=== PATIENT | female | born 1990 | race Two or more races ===

== ENCOUNTER 2017-09-21 19:32 | Emergency (ER) | payer MEDICAID ==
[~2017-09-21] VITALS: Ht 147.3 cm; Wt 44.5 kg
[2017-09-21] MEDS ORDERED: NKM (19:46)
[2017-09-21] MEDS ORDERED: BACITRACIN-P28.35 GM TP (20:12)
[2017-09-21] MEDS ORDERED: TYLENOL EXTRA500 MG ORAL (20:12)
--- NOTE | 2017-09-21 20:13 | Emergency Room Report ---
History of Present Illness General Chief Complaint: Laceration Source: Patient Present Illness HPI 27 yo female patient presents to ER for skin laceration since today. Patient reports cleaning dishes at home when she sliced her pinky finger of her right hand on a knife. Reports bleeding at site of injury. Denies loss of ROM of hand. Reports shes is right handed. Does not know tetanus status. Denies fever, chest pain, SOB. Allergies: Coded Allergies: No Known Allergies (Unverified , 09/21/17) Patient History Past Medical History: see triage record Last Menstrual Period: 08/27/17 Now: No Reviewed Nursing Documentation: PMH: Agreed, PSxH: Agreed Nursing Documentation-PMH Past Medical History: No Stated History Review of Systems All Other Systems: negative except mentioned in HPI Physical Exam Vital Signs Date Time Temp Pulse Resp B/P (MAP) Pulse Ox O2 Delivery O2 Flow Rate FiO2 09/21/17 19:43 98.3 67 16 122/79 98 Room Air 98.2 Sp02 EP Interpretation: reviewed, normal General Appearance: well appearing, no apparent distress, alert, GCS 15 Head: normocephalic, atraumatic Eyes: bilateral eye normal inspection, bilateral eye PERRL ENT: hearing grossly normal, normal pharynx, no angioedema, normal voice, uvula midline, moist mucus membranes Respiratory: lungs clear, normal breath sounds, no rhonchi, no respiratory distress, no accessory muscle use, no wheezing, speaking full sentences Cardiovascular #1: regular rate, rhythm, no edema Cardiovascular #2: 2+ radial (R), 2+ radial (L) Musculoskeletal: back normal, digits/nails normal, gait/station normal, normal range of motion, non-tender, other - NVI Neurologic: alert, oriented x3, responsive, motor strength/tone normal, sensory intact Psychiatric: mood/affect normal Skin: no rash, laceration - right hand, pinky digit, ulnar side near palmar DIP joint: 1cm laceration, linear, superifical, bleeding, no tissue avulsion Medical Decision Making PA Attestation Dr. Rebolledo is my supervising Physician whom patient management has been discussed with. Diagnostic Impression: Primary Impression: Laceration ER Course Pt presents to ED c/o laceration on right hand pinky. DDX considered but are not limited to laceration, abrasion, contusion, cellulitis, avulsion. VITAL SIGNS are WNL, patient is afebrile ED INTERVENTIONS: TDAP provided. Wound was cleaned and irrigated using normal saline. Wound is superficial, does not require sutures at this time. Wound cleaned and covered using sterile dressing and Bacitracin. Patient reports understanding and agreement to treatment plan. DISCHARGE: Rx provided for Bacitracin Rx provided for Tylenol for pain At this time pt is stable for d/c to home. Patient resting comfortably, in no acute distress, nontoxic appearing. Will provide with patient care instructions and any necessary prescriptions. Patient to take medication as instructed. Care plan and follow-up instructions provided. Work note provided to patient. Patient questions asked and answered. Patient instructed to follow-up with primary care provider in 2-3 days for wound check. Patient instructed to followup with PCP to discuss further treatment plan and ability to go to work, ER precautions given. Patient instructed to return to ER immediately for any new or worsening of symptoms. Last Vital Signs Date Time Temp Pulse Resp B/P (MAP) Pulse Ox O2 Delivery O2 Flow Rate FiO2 09/21/17 19:43 98.3 67 16 122/79 98 Room Air 98.2 Disposition: HOME, SELF-CARE Condition: Stable Scripts Acetaminophen* (TYLENOL EXTRA STRENGTH*) 500 Mg Tablet 500 MG ORAL Q8H Y for Prn Headache/Temp > 101, #30 TAB 0 Refills Prov: Carlos Jerry 09/21/17 Bacitracin/Polymyxin B Sulfate (BACITRACIN-POLYMYXIN OINTMENT) 28.35 Gm Oint...g. 1 APPLIC TP BID for 7 Days, GM Prov: Carlos Jerry 09/21/17 Patient Instructions: Nonsutured Laceration Care Additional Instructions: Followup with primary care provider in 2-3 days for wound check. Discuss further treatment and referral at that time. Keep wound and dressing clean and dry. Take medications as directed. Patient questions asked and answered. ER precautions given, patient instructed to return to ER immediately for any new or worsening of symptoms. Carlos Jerry Sep 21, 2017 20:13
[2017-09-21] MEDS ORDERED: Tetanus/Diptheria/Pertussis Vaccine 0.5ml Syr IM ONE (20:15)
[2017-09-21] MEDS ORDERED: Bacitracin Oint UD TOPIC ONE (20:15)
[2017-09-21 20:38] VITALS: BP 122/79
== END 2017-09-21 21:05 | disposition home or self-care (01) ==
LOC: EMR 20:24
DX: S61.216A Laceration without foreign body of right little finger without damage to nail, initial encounter (principal); Z23 Encounter for immunization; W26.0XXA Contact with knife, initial encounter; Y93.G1 Activity, food preparation and clean up; Y92.009 Unspecified place in unspecified non-institutional (private) residence as the place of occurrence of the external cause
CPT/HCPCS: 90471; 90715; 99284